=== PATIENT | female | born 1965 | race American Indian/Alaskan Native ===

== ENCOUNTER 2016-11-15 13:53 | Emergency (ER) | payer SELFPAY ==
[2016-11-15] MEDS ORDERED: MORPHINE IV ONE ×2 (14:59→18:26)
--- NOTE | 2016-11-15 15:08 | Emergency Department Report ---
HPI - General Chief Complaint: Extremity Injury, Lower Time Seen by Provider: 11/15/16 14:34 - HPI HPI: This is a 51-year-old female presents to the emergency department by EMS from home with complaint of pain and swelling to the right knee. She denies any injury. She is not taken anything for symptoms prior to presentation. She does not currently have a primary care doctor as she recently moved here from [place]. She has a past medical history of HIV, hypertension. No recent travel or sick contacts at home. She denies any skin color change. ED Past Medical Hx - Past Medical History Previous Medical History?: Yes Hx Hypertension: Yes Hx HIV: Yes - Surgical History Past Surgical History?: No - Social History Smoking Status: Never Smoker Substance Use Type: None - Medications Home Medications: Home Medications Medication Instructions Recorded Confirmed Last Taken Type HYDROcodone/APAP 5-325 [[place] 1 each PO Q6HR PRN #10 tablet 11/15/16 Unknown Rx 5/325] amLODIPine [Norvasc] 5 mg PO DAILY #30 tab 11/15/16 Unknown Rx ED Review of Systems ROS: Stated complaint: POSS DISLOCATED RIGHT KNEE Other details as noted in HPI Comment: All other systems reviewed and negative Constitutional: denies: chills, fever Eyes: denies: eye pain, eye discharge, vision change ENT: denies: ear pain, throat pain Respiratory: denies: cough, shortness of breath, wheezing Cardiovascular: edema. denies: chest pain, palpitations Gastrointestinal: denies: abdominal pain, nausea, diarrhea Genitourinary: denies: urgency, dysuria, discharge Musculoskeletal: joint swelling, arthralgia Skin: denies: rash, lesions Physical Exam - Physical Exam Vital Signs: Vital Signs 11/15/16 11/15/16 11/15/16 13:54 14:00 14:14 Temperature 98.3 F Pulse Rate 84 82 Respiratory 17 21 18 Rate Blood Pressure 196/125 Blood Pressure 190/111 [Right] O2 Sat by Pulse 98 98 Oximetry Physical Exam: GENERAL: The patient is well-developed well-nourished. HEENT: Normocephalic. Atraumatic. Extraocular motions are intact. Patient has moist mucous membranes. Pupils equal reactive to light bilaterally. NECK: Supple. Trachea is midline. CHEST/LUNGS: Clear to auscultation. There is no respiratory distress noted. HEART/CARDIOVASCULAR: Regular. There is no tachycardia. There is no gallop rub or murmur. ABDOMEN: Abdomen is soft, nontender. Patient has normal bowel sounds. There is no abdominal distention. Morbidly obese habitus. SKIN: Skin is warm and dry. There is very mild swelling around the anterior right knee but no fluctuance, erythema or warmth. NEURO: The patient is awake, alert, and oriented. The patient is cooperative. The patient has no focal neurologic deficits. The patient has normal speech. MUSCULOSKELETAL: There is tenderness to palpation to the circumferential right knee. Negative anterior and posterior drawer test. No laxity with valgus or varus stress. There is decreased flexion and extension of the right knee secondary to pain. ED Course Vital Signs 11/15/16 11/15/16 11/15/16 13:54 14:00 14:14 Temperature 98.3 F Pulse Rate 84 82 Respiratory 17 21 18 Rate Blood Pressure 196/125 Blood Pressure 190/111 [Right] O2 Sat by Pulse 98 98 Oximetry ED Medical Decision Making - Lab Data Result diagrams: 11/15/16 16:08 11/15/16 16:08 - Radiology Data Radiology results: report reviewed, image reviewed interpreted by me: X-ray of the right knee does not show any fracture, dislocation or any acute process. Venous Doppler of the right lower extremity is negative for DVT. - Medical Decision Making 51-year-old female presents after waking up this morning with pain and swelling to the right knee. There was no injury that she is aware of. An x-ray was done that did not show any fracture, dislocation or any acute process. A venous Doppler was done that did not show any DVT. Labs are mostly unremarkable do not show any etiology of symptoms. She does not have a significantly elevated CRP or sedimentation rate to be concern for a septic joint. Vital signs stable including being afebrile. However the patient does present with very elevated blood pressure. She says that she is on enalapril and did not take it today. She denies any chest pain, headache, vision change, shortness of breath or any sequela of the hypertension. She has a tobacco smoker and admits to caffeinated use. She was given a dose of hydralazine, labetalol and some pain control for her knee and eventually the blood pressure came down to a more reasonable level. The patient will be placed in a knee immobilizer and on crutches. She will get a referral for an orthopedist. For her blood pressure, she has been given a prescription for 5 mg amlodipine to add to her enalapril. She's been encouraged to try and quit smoking and stay way from proximal there high in salt caffeine. She has been encouraged to keep a blood pressure log to make sure that the blood pressure medication is working but also that is not causing any hypotension. She will follow up with these physicians but will return to the ER with any worsening of her symptoms or any acute distress. - Differential Diagnosis DVT, knee sprain, joint effusion, septic joint, arthritis Critical Care Time: No Critical care attestation.: If time is entered above; I have spent that time in minutes in the direct care of this critically ill patient, excluding procedure time. ED Disposition Clinical Impression: Right knee pain Qualifiers: Chronicity: acute Qualified Code(s): M25.561 - Pain in right knee Hypertension Qualifiers: Hypertension type: essential hypertension Qualified Code(s): I10 - Essential ( primary) hypertension Disposition: DC-01 TO HOME OR SELFCARE Is pt being admited?: No Condition: Stable Instructions: Hypertension (ED), Arthralgia (ED) Additional Instructions: Please follow-up with a primary care physician in the next few days. You need to try and quit smoking. Try to stay with foods that are high in salt caffeinated products to help with your blood pressure. I have added a second blood pressure medication for you. The medication is called amlodipine/Norvasc and to be taken once a day. It is recommended that she keep a blood pressure log to make sure that the medication is working and also to make sure that it is not working too well causing low blood pressure. I have given you a referral for a local orthopedist, Dr. Dawson, to follow up regarding your knee pain. She can use ice, compression, elevation and rest. Return to the emergency department with any worsening of your symptoms or any acute distress. You've been prescribed a medication that is sedating. Therefore this medication cannot be mixed with alcohol, or taken prior to driving, working, or being responsible for children. Prescriptions: amLODIPine [Norvasc] 5 mg PO DAILY #30 tab HYDROcodone/APAP 5-325 [[place] 5/325] 1 each PO Q6HR PRN #10 tablet PRN Reason: Pain Referrals: [facility] [Provider Group] - 3-5 Days ROSITA TOBAR MD [Staff Physician] - 3-5 Days CHELE DAWSON MD [Staff Physician] - 3-5 Days Forms: Work/School Release Form(ED) Time of Disposition: 19:45
--- NOTE | 2016-11-15 15:37 | XRay Report ---
RIGHT KNEE, 3 views: History: Right knee swelling. The bony architecture is intact without evidence of fracture or dislocation. No significant soft tissue abnormality is seen. IMPRESSION: Normal right knee.
[2016-11-15 16:18] LABS: Basophils % (Auto) 0.4 % (0.0-1.8); Eosinophils % (Auto) 2.3 % (0.0-4.3); Hematocrit 38.6 % (30.3-42.9); Hemoglobin 12.9 gm/dl (10.1-14.3); Mean Corpuscular HGB Conc 33 % (30-34); Mean Corpuscular Hemoglobin 28 pg (28-32); Mean Corpuscular Volume 85 fl (79-97); Platelet Count 234 K/mm3 (140-440); Red Blood Count 4.54 M/mm3 (3.65-5.03); White Blood Count 8.6 K/mm3 (4.5-11.0)
[2016-11-15] MEDS ORDERED: NORMODYNE IV ONE ×2 (16:22→16:46)
[2016-11-15 16:40] LABS: Erythrocyte Sedimentation Rate 34 mm/Hr (0-20)
[2016-11-15 16:59] LABS: BUN/Creatinine Ratio 15.83; C-Reactive Protein 1.3 mg/dL (0.00-1.30); Calcium 9.1 mg/dL (8.4-10.2); Chloride 103.2 mmol/L (98-107); Potassium 3.8 mmol/L (3.6-5.0)
[2016-11-15] MEDS ORDERED: APRESOLINE IV ONE (17:35)
[2016-11-15] MEDS ORDERED: ZOFRAN IV ONE (18:26)
[2016-11-15 19:03] VITALS: BP 169/96
--- NOTE | 2016-11-17 10:38 | Vascular Lab Report ---
Right Lower Extremity Venous Duplex Study: Reason for Exam: Pain and swelling of the right lower extremity. Comments on the Right: All veins visualized are freely compressible without evidence of internal echogenicity. Flow is spontaneous and phasic throughout. No evidence of acute or chronic thrombus is seen in any of the vessels visualized. Soft tissue density is consistent with a knee effusion. Comments on the Left: A limited duplex study was done of the proximal veins of the left lower extremity. All veins visualized are freely compressible without evidence of internal echogenicity. Flow is spontaneous and phasic throughout. No evidence of acute or chronic thrombus is seen in any of the vessels visualized. Impression: No evidence of acute or chronic deep venous thrombosis in the right lower extremity.
== END 2016-11-15 20:38 | disposition home or self-care (01) ==
LOC: ED 13:53
DX: M25.561 Pain in right knee (principal); I10 Essential (primary) hypertension; Z88.0 Allergy status to penicillin
CPT/HCPCS: 29505; 36415; 73562; 80048; 85025; 85652; 86140; 93971; 96374; 96375; 96376; 99285; J0360; J2270; J2405